=== PATIENT | female | born 1980 | race Caucasian/White ===

== ENCOUNTER → 2017-08-31 | Outpatient (CLI) | payer OTHER ==
--- NOTE | 2017-08-31 10:07 | ECHOF ---
Referral Reason:I10 hypertention MEASUREMENTS -------- HEIGHT: 160.0 cm WEIGHT: 148.3 kg BP: 161/97 RVIDd: 2.3 cm (< 3.3) IVSd: 0.9 cm (0.6 - 1.1) LVIDd: 4.8 cm (3.9 - 5.3) LVPWd: 1.0 cm (0.6 - 1.1) IVSs: 1.2 cm LVIDs: 3.4 cm LVPWs: 1.6 cm LAESV Index (A-L): 17.68 ml/m Ao Diam: 3.1 cm (2.0 - 3.7) AV Cusp: 2.0 cm (1.5 - 2.6) LA Diam: 2.1 cm (2.7 - 3.8) EPSS: 0.5 cm MV E Hari: 0.75 m/s MV DecT: 241 ms MV A Hari: 0.86 m/s MV E/A Ratio: 0.88 RAP: 5.00 mmHg RVSP: 14.51 mmHg MV EF SLOPE: 100.06 mm/s (70 - 150) MV EXCURSION: 1.24 cm (> 18.000) FINDINGS -------- Sinus rhythm. This was a technically adequate study. The left ventricular size is normal. Left ventricular wall thickness is normal. Overall left vent ricular systolic function is normal with, an EF between 55 - 60 %. The right ventricle is normal in size and function. Normal LA size by volume 22+/-6 ml/m2. The right atrium is normal in size. The aortic valve is trileaflet, and appears structurally normal. No aortic stenosis or regurgitation. The mitral valve is normal. There is trace mitral regurgitation. Trace tricuspid regurgitation present. Right ventricular systolic pressure is normal at < 35 mmHg. There is no evidence of pulmonary hypertension. The pulmonic valve was not well visualized. The aortic root size is normal. IVC Not well visulized. The pericardium is normal. There is no pericardial effusion. CONCLUSIONS -------- 1. Sinus rhythm. 2. This was a technically adequate study. 3. The left ventricular size is normal. 4. Left ventricular wall thickness is normal. 5. Overall left ventricular systolic function is normal with, an EF between 55 - 60 %. 6. Normal LA size by volume 22+/-6 ml/m2. 7. The aortic valve is trileaflet, and appears structurally normal. No aortic stenosis or regurgitati on. 8. There is trace mitral regurgitation. 9. Trace tricuspid regurgitation present. 10. Right ventricular systolic pressure is normal at < 35 mmHg. 11. There is no evidence of pulmonary hypertension. 12. The pulmonic valve was not well visualized. 13. The aortic root size is normal. 14. IVC Not well visulized. 15. There is no pericardial effusion. [employer] PAINTER: Sarwat Rodarte RDCS
== END ==
LOC: RADECHMAIN 08:25
PROVIDERS: ATTEND Family Medicine
DX: I10 Essential (primary) hypertension (principal)
CPT/HCPCS: 93306

== ENCOUNTER 2018-04-10 12:21 | Day surgery (SDC) | payer OTHER ==
[2018-04-10 12:43] VITALS: RESP 16; TEMP 97.5
[2018-04-10] MEDS ORDERED: ALPRAZolam 0.5 MG TAB PO STA (12:47)
--- NOTE | 2018-04-10 13:52 | US ---
ULTRASOUND GUIDED FNA THYROID BIOPSY: CLINICAL HISTORY: Thyroid nodule FINDINGS: The procedure was explained to the patient. The risks, complications, benefits and alternatives were discussed and any questions were answered. Informed consent was obtained. Patient was placed supin e on the ultrasound table and prepped and draped in the usual sterile fashion. Utilizing a 25 gauge needle, five passes were made into the 1.4 cm isthmus nodule. No other discrete nodules were seen by today's ultrasound. The thyroid tissue is diffusely abnormal and heterogeneous. Patient was stable throughout the procedure. Pathology is pending. All elements of maximal barrier technique were utilized. IMPRESSION: 1. Successful ultrasound guided FNA thyroid biopsy of a 1.4 cm isthmus nodule. No other discrete def inable nodule can be seen for percutaneous biopsy. However, the tissue is diffusely heterogeneous cor relate for thyroiditis.
[2018-04-10 14:20] VITALS: BP 142/86; PULSE 96
== END 2018-04-10 13:45 | disposition home or self-care (01) ==
LOC: RADPROMAIN 12:21
PROVIDERS: ATTEND Family Medicine
DX: E04.1 Nontoxic single thyroid nodule (principal)
CPT/HCPCS: 10022; 76942; 88173; 88305

== ENCOUNTER → 2018-11-26 | Outpatient (CLI) | payer OTHER ==
--- NOTE | 2018-11-26 11:52 | ECHOS ---
STRESS ECHOCARDIOGRAM INDICATIONS: Hypertension/shortness of breath MEDICATIONS: Losartan, amlodipine, Synthroid. BASELINE HEART RATE: 94 BASELINE BLOOD PRESSURE: 160/80 MAXIMUM HEART RATE: 176 MAXIMUM BLOOD PRESSURE: 209/84 85% MPHR: 156 100% MPHR: 183 METS: 5.8 MAXIMUM STAGE REACHED: 2 TOTAL EXERCISE TIME: 4:00 CLINICAL INFORMATION: Baseline EKG revealed normal sinus rhythm with inferolateral nonspecific ST abnormality. Patient walked on a standard Gilbert protocol for 4 minutes, achieved a maximal heart rate of 176 beats per minute developed fatigue and shortness of breath but did not have any angina or arrhythmia. EKG was inconclusive with ST-segment and depression in inferolateral leads, but these changes were seen to begin with making this an inconclusive stress test. Exercise capacity was extremely limited. By EKG criteria, this is an inconclusive stress test with resting EKG abnormalities and limited exercise capacity. Baseline echo images revealed normal wall motion wall thickening of all segments. At peak exercise, there was good augmentation of left and right wall motion wall thickening of all segments suggesting that there is no stress-induced ischemia. Patient's resting heart rate was 94 beats per minute. Peak heart rate was 176 beats per minute. Resting blood pressure was 160/80 and peak pressure was 1 there was 209/84. FINAL IMPRESSION: 1. Limited exercise capacity with poor conditioning, but by EKG criteria, this is an inconclusive stress test because of resting EKG changes. 2. Normal stress echocardiogram with limited exercise capacity. ALINE / ELIZABET: [id number] /
--- NOTE | 2018-11-26 15:44 | US ---
EXAMINATION TYPE: US thyroid st tissue head/neck DATE OF EXAM: 11/26/2018 COMPARISON: 04/10/2018 CLINICAL HISTORY: E04.1 NONTOXIC SINGLE THYROID NODULE. GLAND SIZE: Right Lobe: 6.3 x 2.8 x 2.2 cm Overall Parenchyma: grossly heterogenous Left Lobe: 6.1 x 3.5 x 2.7 cm Overall Parenchyma: grossly heterogenous Isthmus Thickness: 1.2 cm NODULES RIGHT: # of nodules measured on right: 0 LEFT: # of nodules measured on left: 0 ISTHMUS: # of nodules measured in the isthmus: 1 1. 1.4 x 1.0 x 1.3 cm hypoechoic solid nodule at the mid pole with well-defined margins. This nodul e is wider than tall. Prior size: 1.4 cm Bilateral neck scanned, no evidence of lymphadenopathy. IMPRESSION: Thyroid lobes are enlarged and markedly heterogenous. Stable nodule in the region of the isthmus. Cor relate clinically and with thyroid function testing.
== END | disposition home or self-care (01) ==
LOC: RADNMMAIN 08:46
PROVIDERS: ATTEND Family Medicine
DX: I10 Essential (primary) hypertension (principal); E04.1 Nontoxic single thyroid nodule
CPT/HCPCS: 76536; 93351

== ENCOUNTER → 2020-02-28 | Outpatient (CLI) | payer OTHER ==
--- NOTE | 2020-03-01 08:56 | MR ---
EXAMINATION TYPE: MR knee LT wo con DATE OF EXAM: 02/28/2020 COMPARISON: Left knee x-ray February 13, 2020. HISTORY: Moderate knee pain with swelling and locking for 3 weeks since walking injury per patient. TECHNIQUE: Multiplanar, multisequence imaging of the left knee is performed without IV contrast. FINDINGS: Exam suboptimal secondary to patient's large body habitus. MEDIAL MENISCUS: Anterior and posterior horns are intact without tear. LATERAL MENISCUS: Anterior horn shows increased signal extending peripherally complete to articular s urface with fraying anterior margin consistent with full-thickness tear. CRUCIATE LIGAMENTS: The anterior and posterior cruciate ligaments are intact and unremarkable. COLLATERAL LIGAMENTS: The medial collateral ligament and lateral collateral ligament complex are inta ct and unremarkable. EXTENSOR MECHANISM: Visualized quadriceps and patellar tendons are intact. EFFUSION: Small to moderate size suprapatellar joint effusion. POPLITEAL CYST: No popliteal/samano cyst. TRICOMPARTMENT SPACES: Mild to moderate patellofemoral compartment narrowing greatest inferiorly. Add itional mild to moderate narrowing medial and lateral tibiofemoral compartments with mild spurring la terally. CARTILAGE: Some chondromalacia patella with thinning of articular cartilage along the inferior aspect posterior patellar pole. Thinning of articular cartilage medial and lateral tibiofemoral compartment s is present. BONE MARROW SIGNAL: No focal abnormal marrow signal is appreciated. OTHER: Mild to moderate subcutaneous edema anterior superficial infrapatellar region. IMPRESSION: 1. Full-thickness tear anterior horn of lateral meniscus. 2. Mild to moderate tricompartment degenerative changes as detailed above somewhat pronounced for pat ient's chronologic age. 3. Small to moderate-size suprapatellar joint effusion.
== END | disposition home or self-care (01) ==
LOC: RADMRIMAIN 20:46
PROVIDERS: ATTEND Orthopaedic Surgery
DX: M17.12 Unilateral primary osteoarthritis, left knee (principal); S83.282A Other tear of lateral meniscus, current injury, left knee, initial encounter

== ENCOUNTER → 2020-09-09 | Outpatient (CLI) | payer OTHER | END | disposition home or self-care (01) | LOC: LABWHC1 08:37 | PROVIDERS: ATTEND Family Medicine | DX: U07.1 COVID-19 (principal) | CPT/HCPCS: 87502; U0003; C9803 ==

== ENCOUNTER 2020-09-11 08:59 | Emergency (ER) | payer OTHER ==
--- NOTE | 2020-09-11 09:26 | ED ---
General Adult HPI - General Chief complaint: Shortness of Breath Stated complaint: Covid+ Time Seen by Provider: 09/11/20 09:00 Source: patient, RN notes reviewed, old records reviewed Mode of arrival: wheelchair Limitations: physical limitation - History of Present Illness Initial comments: This is a 40-year-old female presents emergency department stating that about a week ago she started having symptoms of shortness of breath fever or aches. Patient states she was tested for cold yesterday she was told she was positive and she came in today because his shortness of breath is no better and her primary medical care doctor wants her to get monoclonal antibodies. Patient denies any fever today. Patient denies aches or pains at this time. Patient states she does have shortness breath when she moved per patient denies any chest pain. Patient's abdominal pain patient denies nausea vomiting diarrhea. - Related Data Home Medications Medication Instructions Recorded Confirmed Levothyroxine Sodium [Levoxyl] 200 mcg PO DAILY 04/03/18 09/11/20 Losartan Potassium [Cozaar] 100 mg PO DAILY 04/03/18 09/11/20 Medroxyprogesterone Acetate 150 mg IM ONCE 04/03/18 09/11/20 [Depo-Provera] amLODIPine [Norvasc] 10 mg PO DAILY 04/03/18 09/11/20 hydroCHLOROthiazide 25 mg PO DAILY 04/03/18 09/11/20 Thyroid, Pork [[place] Thyroid] 30 mg PO DAILY 04/10/18 09/11/20 Allergies Allergy/AdvReac Type Severity Reaction Status Date / Time clarithromycin [From Biaxin] Allergy Rash/Hives Verified 09/11/20 10:56 codeine AdvReac Vomiting Verified 09/11/20 10:56 Review of Systems ROS Statement: Those systems with pertinent positive or pertinent negative responses have been documented in the HPI. ROS Other: All systems not noted in ROS Statement are negative. Past Medical History Past Medical History: Asthma, Hypertension, Thyroid Disorder Additional Past Medical History / Comment(s): History of PID, thyroid nodules History of Any Multi-Drug Resistant Organisms: None Reported Past Surgical History: No Surgical Hx Reported Past Anesthesia/Blood Transfusion Reactions: No Reported Reaction Additional Past Anesthesia/Blood Transfusion Reaction / Comment(s): has never had anesthesia Past Psychological History: No Psychological Hx Reported Smoking Status: Never smoker Past Alcohol Use History: None Reported Past Drug Use History: None Reported - Past Family History Mother History Unknown: Yes Family Medical History: No Reported History Additional Family Medical History / Comment(s): "she is medicated before surgery to prevent blood clots" General Exam - General Exam Comments Initial Comments: GENERAL: Patient is well-developed and well-nourished. Patient is nontoxic and well- hydrated and is in mild distress. ENT: Neck is soft and supple. No significant lymphadenopathy is noted. Oropharynx is clear. Moist mucous membranes. Neck has full range of motion without eliciting any pain. EYES: The sclera were anicteric and conjunctiva were pink and moist. Extraocular movements were intact and pupils were equal round and reactive to light. Eyelids were unremarkable. PULMONARY: Unlabored respirations. Good breath sounds bilaterally. Patient has crackles in the bases bilaterally CARDIOVASCULAR: Patient is tachycardic at 110 bpm ABDOMEN: Soft and nontender with normal bowel sounds. SKIN: Skin is clear with no lesions or rashes and otherwise unremarkable. NEUROLOGIC: Patient is alert and oriented x3. Cranial nerves II through XII are grossly intact. Motor and sensory are also intact. Normal speech, volume and content. Symmetrical smile. MUSCULOSKELETAL: Normal extremities with adequate strength and full range of motion. No lower extremity swelling or edema. No calf tenderness. LYMPHATICS: No significant lymphadenopathy is noted PSYCHIATRIC: Normal psychiatric evaluation. Limitations: physical limitation Course Vital Signs 09/11/20 09/11/20 09/11/20 09:09 10:14 11:02 Temperature 98.4 F 97.3 F L Pulse Rate 116 H 112 H 116 H Respiratory 20 20 18 Rate Blood Pressure 155/111 179/89 142/97 O2 Sat by Pulse 91 L 97 90 L Oximetry 09/11/20 09/11/20 11:33 12:21 Temperature Pulse Rate 103 H 102 H Respiratory 18 18 Rate Blood Pressure 139/78 137/75 O2 Sat by Pulse 91 L 91 L Oximetry Medical Decision Making - Medical Decision Making Patient's chest x-ray shows pneumonia consistent with code. Patient will go to the infusion center to get monoclonal antibodies. - Lab Data Lab Results 09/11/20 Range/Units 09:29 Coronavirus (PCR) Detected A (Not Detectd) Disposition Clinical Impression: Pneumonia due to COVID-19 virus Disposition: HOME SELF-CARE Instructions (If sedation given, give patient instructions): Coronavirus Disease 2019 (COVID-19) Additional Instructions: Patient should return to the emergency department she's having any new or worsening symptoms. Is patient prescribed a controlled substance at d/c from ED?: No Referrals: Roland Kerr MD [Primary Care Provider] - 1-2 days Time of Disposition: 10:10
[2020-09-11] MEDS ORDERED: BAMLANIVIMAB (EUA) 700 MG, ETESEVIMAB (EUA) 1,400 MG in SODIUM CHLORIDE 0.9% 50 ML IVPB ONE (10:00)
[2020-09-11] MEDS ORDERED: SODIUM CHLORIDE 0.9% 50 ML IVPB ONE (10:00)
[2020-09-11] MEDS ORDERED: ONDANSETRON 4 MG/2 ML VIAL IVP STA (10:11)
--- NOTE | 2020-09-11 10:13 | XR ---
EXAMINATION TYPE: XR chest 2V DATE OF EXAM: 09/11/2020 COMPARISON: NONE HISTORY: Difficulty in breathing. COVID. TECHNIQUE: Frontal and lateral views of the chest are obtained. FINDINGS: There are low lung volumes with bilateral multifocal opacities seen best in the left mid a nd lower lung. No pleural effusion or pneumothorax seen bilaterally. The cardiac silhouette size is within normal limits. The osseous structures are intact. IMPRESSION: Left greater than right bilateral multifocal opacities consistent with covid-19 infectio n.
[2020-09-11 11:05] VITALS: RESP 18; TEMP 97.3
[2020-09-11] MEDS ORDERED: SODIUM CHLORIDE 0.9% 500 ML 500 ML in EMPTY BAG 1 BAG IV PRN (11:06)
[2020-09-11 12:22] VITALS: BP 137/75; PULSE 102
== END 2020-09-11 12:44 ==
LOC: PROCWHC3 08:59 → EC 08:59 → EDSTATUS 10:54 → PROCWHC3 12:44 → EDSTATUS 12:47
DX: U07.1 COVID-19 (principal); J12.82 Pneumonia due to coronavirus disease 2019; J45.909 Unspecified asthma, uncomplicated; I10 Essential (primary) hypertension; E07.9 Disorder of thyroid, unspecified
CPT/HCPCS: 99285; 96365; 96375; 87635; 71046; J2405; Q0245; M0245

== ENCOUNTER → 2021-10-26 | Outpatient (CLI) | payer OTHER ==
--- NOTE | 2021-10-26 11:53 | XR ---
EXAMINATION TYPE: XR hand complete RT DATE OF EXAM: 10/26/2021 COMPARISON: NONE HISTORY: Pain TECHNIQUE: Three views are submitted. FINDINGS: The osseous structures are intact. The joint spaces are preserved and there is no acute fracture or dislocation. IMPRESSION: 1. No definite acute fracture or dislocation if symptoms persist, follow-up study in 7 to 10 days wo uld be suggested
== END | disposition home or self-care (01) ==
LOC: RADXRMAIN 11:24
PROVIDERS: ATTEND Family Medicine
DX: M79.641 Pain in right hand (principal)

== ENCOUNTER → 2024-01-23 | Outpatient (CLI) | payer OTHER ==
--- NOTE | 2024-01-24 13:26 | MM ---
Reason for Exam: Screening (asymptomatic). Baseline mammogram. Patient History: Menarche at age 10. First Full-Term at age 19. Premenopausal. Maternal aunt had breast cancer. Last menstrual period: 01/17/2024 Risk Values: Lucretia 5 year model risk: 0.5%. NCI Lifetime model risk: 7.9%. Prior Study Comparison: 08/22/2013 Right Diagnostic Ultrasound, [facility]. Patient's first Mammogram. Tissue Density: There are scattered areas of fibroglandular density. Findings: Analyzed By CAD. Right breast: There is no suspicious group of microcalcifications or new suspicious mass. Left breast: There is no suspicious group of microcalcifications or new suspicious mass. Overall Assessment: Negative, BI-RAD 1 Management: Screening Mammogram of both breasts in [address] [facility] will attempt to contact patient to return for supplemental views and ultrasound if indicated. Patient should continue monthly self-breast exams. A clinical breast exam by your physician is recommended on an annual basis. This exam should not preclude additional follow-up of suspicious palpable abnormalities. Note on Lucretia scores and lifetime risk: 1. A Lucretia score greater than 3% is considered moderate risk. If this is the case, consider specialist referral to assess eligibility for a risk reducing agent. 2. If overall lifetime risk for the development of breast cancer is 20% or higher, the patient may qualify for future screening with alternating mammogram and breast MRI. [facility], , 01/24/2024 1:24 PM. Electronically signed and approved by: Jarred Macias DO
== END | disposition home or self-care (01) ==
LOC: RADMAMWWP 07:48
PROVIDERS: ATTEND Family Medicine
DX: Z12.31 Encounter for screening mammogram for malignant neoplasm of breast
CPT/HCPCS: 77063; 77067; 94060; 94726; 94729